=== PATIENT | female | born 2000 | race Caucasian/White ===

== ENCOUNTER 2018-12-24 18:10 | Emergency (ER) | payer SELFPAY ==
[2018-12-24] MEDS ORDERED: ACETAMINOPHEN-CAFF-BUTALBITAL 1 EA TAB PO ONE (18:22)
--- NOTE | 2018-12-24 18:24 | ED.PDOC ---
History of Present Illness - General Time Seen by Provider: 12/24/18 18:21 Source: patient Exam Limitations: no limitations - History of Present Illness Initial Comments: the patient's a 18-year-old female presenting to emergency room secondary to left ear pain that started after she was thrown off of an inner tube while at the [place]. the patient does have decreased hearing on that side. Pain started immediately at that time. Examination does show that she appears to have ruptured her tympanic membrane. No other injuries. Timing/Duration: momentarily Severity: moderate Improving Factors: nothing Worsening Factors: nothing Associated Symptoms: denies symptoms Home Medications: Ambulatory Orders Jaime/Poly/Hc Otic Susp [Cortisporin Otic Susp] 4 drop LEFT_EAR Q6H #10 days 12/24/18 Review of Systems - Review of Systems Constitutional: States: no symptoms reported EENTM: States: see HPI Respiratory: States: no symptoms reported Cardiology: States: no symptoms reported Gastrointestinal/Abdominal: States: no symptoms reported Genitourinary: States: no symptoms reported Musculoskeletal: States: no symptoms reported Skin: States: no symptoms reported Neurological: States: no symptoms reported Endocrine: States: no symptoms reported All other Systems: No Change from Baseline Physical Exam - Physical Exam General Appearance: Alert, Comfortable, No apparent distress Eye Exam: bilateral normal Ears, Nose, Throat: hearing grossly normal, abnormal TM (L) Neck: full range of motion, supple Respiratory: no respiratory distress, no accessory muscle use Cardiovascular/Chest: normal peripheral pulses, no edema Peripheral Pulses: radial,right: 2+, radial,left: 2+ Rectal Exam: deferred Extremity: normal inspection, no pedal edema, normal capillary refill 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 It appears that she has a small rupture in her left tympanic membrane. I do want her to follow up with either her primary care doctor or an ear nose and throat doctor in a c ouple of weeks for repeat examination after erythema has decreased. She does have some decreased hearing at this time. The patient is going to be written for Cortisporin Otic suspension to use for the next 5 days to prevent any infection from setting in. She needs to keep the ear canal dry. ER warnings are given for any significant worsening. Departure - Departure Clinical Impression: Rupture of tympanic membrane, traumatic Qualifiers: Encounter type: initial encounter Laterality: left Qualified Code(s): S09.22XA - Traumatic rupture of left ear drum, initial encounter Disposition: Discharge to Home or Self Care Condition: Fair Instructions: Ruptured Eardrum (DC) Diet: regular diet Activity: increase activity as tolerated Prescriptions: Jaime/Poly/Hc Otic Susp [Cortisporin Otic Susp] 4 drop LEFT_EAR Q6H #10 days Home Medications: Ambulatory Orders Jaime/Poly/Hc Otic Susp [Cortisporin Otic Susp] 4 drop LEFT_EAR Q6H #10 days 12/24/18 Additional Instructions: the patient is a 18-year-old female presenting to emergency room with left ear pain after colliding with the water abnormally while tubing. It appears that she has a small rupture in her left tympanic membrane. I do want her to follow up with either her primary care doctor or an ear nose and throat doctor in a couple of weeks for repeat examination after erythema has decreased. She does have some decreased hearing at this time. The patient is going to be written for Cortisporin Otic suspension to use for the next 5 days to prevent any infection from setting in. She needs to keep the ear canal dry. ER warnings are given for any significant worsening.
[2018-12-24 19:12] VITALS: BP 113/73; TEMP 97.2; O2SAT 100
== END 2018-12-24 19:04 | disposition home or self-care (01) ==
LOC: ER 18:10
DX: S09.22XA Traumatic rupture of left ear drum, initial encounter (principal); V92.1 Drowning and submersion due to being thrown overboard by motion of watercraft; Y93.16 Activity, rowing, canoeing, kayaking, rafting and tubing; Y92.828 Other wilderness area as the place of occurrence of the external cause